=== PATIENT | male | born 1985 | race Caucasian/White ===

== ENCOUNTER 2017-11-21 09:29 | Emergency (ER) | payer OTHER, SELFPAY ==
--- NOTE | 2017-11-21 09:50 | DI.RAD_ITS ---
SYMPTOM/DIAGNOSIS: COUGH, SOB AND CP PA AND LATERAL CHEST: The heart is normal in size. The lungs are clear. The mediastinal structures and pleura appear intact. CONCLUSION: Normal chest.
--- NOTE | 2017-11-21 09:50 | ED.GENADUL_ITS ---
Discharge Plan Disposition Patient Disposition: HOME Condition: Poor Discharge Details Chief Complaint: Chest Pain Clinical Impression: Bronchitis, Pleuritis, Electrocardiography showing no acute ischemic changes Primary Care Provider: NONE,NONE ED Provider: Veena Naranjo Home Meds and New Rx's Prescriptions: New albuterol sulfate 2.5 mg/0.5 mL solution for nebulization 2.5 mg IH QID PRN (Reason: shortness of breath or wheezing) Qty: 12 RF: 0 benzonatate [Tessalon Perles] 100 mg capsule 100 mg PO TID PRN (Reason: cough) Qty: 10 RF: 0 azithromycin 500 mg tablet See Label Instructions .ROUTE .COMPLEX Qty: 3 RF: 0 prednisone 20 mg tablet 20 mg PO TID Qty: 18 RF: 0 nebulizer and compressor device .ROUTE .MEDSUPPLY Qty: 1 RF: 0 No Action acetaminophen [Mapap Extra Strength] 500 MG tablet 1,000 mg PO RF: 0 ibuprofen 200 MG tablet 600 mg PO RF: 0 Discharge Instructions Instructions: Pleurisy (ED), Acute Bronchitis (ED) Additional Instructions: Encourage hydration. Tylenol and ibuprofen as needed for discomfort. Please take antibiotics and steroids as prescribed. Please take care to follow the directions on the bottle for the steroids as this is a taper and the dosing will change day to day. You may use the albuterol nebulizer as prescribed to help with shortness of breath. Tessalon Perles may be used as prescribed to help with cough as needed. You will need follow-up with primary care, our critical care registered nurse is helping to facilitate this follow-up. He will also need the pulmonary function test as discussed with respiratory therapy. Please wait to have this testing until your symptoms have improved. Please discuss the EKG changes with your primary care as well. If you develop increased chest pain, shortness of breath, difficulty breathing, inability to hydrate or other new/ worsening symptoms please seek care urgently once again Stand Alone Forms: Work Release Discharge Data Discharge Date/Time-TO BE ENTERED AT DEPARTURE: 11/21/17 12:35 Medical Decision Making Patient presents today with chief complaint of chest pain, shortness of breath and cough. On exam, patient is noted to have wheezing in all العلي with expiration. No areas of consolidation is noted. Rate is regular, normal sinus rhythm. Patient appears nontoxic. Patient is endorsing pleuritic chest pain bilaterally in the lower lung العلي. Calves are soft and nontender. No pedal edema. No history of respiratory or cardiac pathology. Patient is an active smoker. Smokes marijuana regularly. Patient is currently afebrile. Is not taking anything as of yet for fevers or discomfort today. I will obtain EKG, chest x-ray and laboratory evaluation. EKG reviewed by Dr. Roche, concerning for T wave inversions in leads I and aVL. No prior to compare to. CXR reviewed by radiologist with no acute abnormalities noted. Laboratory evaluation has a delay secondary to machine malfunction. Patient reports no improvement with duoneb, sounds slightly improved but continues to ahve expiratory wheeze. Will give Albuterol neb. Patient reports Albuterol neb greatly improved his SOB. Patient is less wheezy. Labs without abnormality. No leukocytosis. D-dimer 244. Troponin <0.02. As the patient has had symptoms for one week, and more suggestive of infecious source, we will nt repeat the troponin at this time. Discussed findings with the patient. He reports taht he has had multiple episodes of bronchitis in the past. I have asked our respiratory therapist to evaluate the patient and instruct on how to use nebulizer. Will discharge patient with nebulizer as this greatly helped with symptomatic relief. As patient does have infection source and concerning history, will also be treated with oral steroids and antibiotics for bronchitis. Have advised respiraotry follow up given the amount of episodes of bronchitis he has had historically. Advised close f/u with PCP in one week to discuss respiratory concerns as well as EKG abnormalities. He was given strict return precautions. All of his questions and concerns were addressed, he isin agreement with this plan. HPI General Mode of arrival: ambulatory . Date/Time Provider Initiated Documentation: 11/21/17 09:30 . Limitations to Documentation: no limitations . Information obtained by: patient . HPI Narrative: Patient is a 32-year-old male presenting today with chief complaint of chest pain, cough and shortness of breath. He reports his symptoms began 1 week ago and have progressively been increasing. Patient is an active smoker. States that the cough exacerbates his chest pain. Indicates the bilateral lower aspects of his lungs as area of maximal discomfort. States that he feels that he is short of breath. States he has had fevers at home with T-max of 101.5 ?F. He denies any GI upset. No nausea, vomiting or diarrhea. Denies sore throat or ear pain. Reports he smokes marijuana but denies other illicit drug use. States the cough has been productive and he has been bringing up large amounts of sputum Related Data Home Medications Medication Instructions Recorded Confirmed acetaminophen [Mapap Extra 1,000 mg PO 05/30/17 Strength] ibuprofen 600 mg PO 05/30/17 albuterol sulfate 2.5 mg IH QID PRN #12 each 11/21/17 azithromycin See Label Instructions .ROUTE 11/21/17 .COMPLEX #3 tab benzonatate [Tessalon Perles] 100 mg PO TID PRN #10 cap 11/21/17 nebulizer and compressor #1 each 11/21/17 prednisone 20 mg PO TID #18 tab 11/21/17 Previous Rx's Medication Instructions Recorded albuterol sulfate 2.5 mg IH QID PRN #12 each 11/21/17 azithromycin See Label Instructions .ROUTE 11/21/17 .COMPLEX #3 tab benzonatate [Tessalon Perles] 100 mg PO TID PRN #10 cap 11/21/17 nebulizer and compressor #1 each 11/21/17 prednisone 20 mg PO TID #18 tab 11/21/17 Allergies Allergy/AdvReac Type Severity Reaction Status Date / Time No Known Allergies Allergy Unverified 11/21/17 11:04 Review of Systems Constitutional Reports as per HPI, Reports chills, Reports fatigue, Reports fever(s), Denies headache(s) and Denies poor appetite ENT Reports as per HPI and Denies headache(s) Cardiovascular Reports as per HPI, Reports chest pain, Denies pedal edema, Denies lightheadedness, Denies radiating jaw, neck or arm pain, Denies palpitations, Reports dyspnea and Reports dyspnea on exertion Respiratory Reports as per HPI, Reports chest congestion, Reports cough, Denies hemoptysis, Reports pain on inspiration, Reports pain with cough, Reports dyspnea, Reports dyspnea on exertion, Denies stridor and Reports wheezing Gastrointestinal Reports as per HPI, Denies change in bowel habits, Denies nausea and Denies vomiting Genitourinary Reports system reviewed and no additional complaints, except as docu (denies change in urinary habits) Musculoskeletal Reports as per HPI Integumentary/Breasts Denies new lesions, Denies erythema, Denies rash and Denies jaundice Neurologic Denies headache(s) Endocrine Reports fatigue and Denies palpitations Allergic/Immunologic Reports wheezing [facility] Social History Smoking/Tobacco Use Status: Current every day Exam Const General: cooperative, healthy appearing, comfortable, no acute distress and well developed Nutritional Appearance: average body habitus and well nourished Orientation: alert and awake HENMT Head: normal to inspection, normocephalic and atraumatic Ears: hearing grossly normal bilaterally General nose exam: external nose normal Mouth: lip normal, tongue normal and mucous membranes dry (appears dry on exam) Throat: posterior oropharynx normal and uvula midline Eyes General: appearance normal, both eyes and all related structures Neck Neck: normal visual inspection and no lymphadenopathy Chest Chest: normal inspection of the chest, normal palpation of entire chest wall and no crepitus Resp Effort & Inspection: normal respiratory effort, able to speak in complete sentences, cough, not labored, no nasal flaring, no respiratory distress, not tachypneic, no tripod positioning and no use of accessory muscles Auscultation: wheezes expiratory wheezes (in all العلي) Cardio Rate: regular rate Rhythm: regular rhythm Heart Sounds: S1 normal and S2 normal GI Inspection: normal to inspection Palpation: soft, no guarding and nontender Skin General skin exam: no rashes or lesions noted Lesions: no lesions Rashes: no rashes Neuro General: alert, awake and oriented x3 Cognition: normal cognition Speech: speech normal Gait: normal gait Extrem General: no pedal edema, no calf tenderness and normal gait Psych Appearance: grossly normal and well kempt Mental Status: mental status grossly normal Speech and Movement: speech and movement normal
[2017-11-21 09:58] LABS: Abs Immature Grans 0.02 k/cumm (0.0-0.09); Absolute Basophil Count 0.03 k/cumm (0.0-0.2); Absolute Eosinophil Count 0.16 k/cumm (0.0-0.7); Absolute Lymphocyte Count 1.55 k/cumm (1.2-3.4); Absolute Monocyte Count 0.79 k/cumm (0.11-0.7); Absolute Neutrophil Count 5.13 k/cumm (1.2-6.7); Basophils % 0.4; Eosinophils % 2.1; HCT 48.8 % (40.0-50.0); HGB 16.9 g/dL (13.5-17.5); Immature Grans % 0.3; Lymphocytes % 20.2; Mean Corp. HGB Concentration 34.6 g/dL (32.0-36.0); Mean Corpuscular Hemoglobin 31.4 pg (27.0-33.0); Mean Corpuscular Volume 90.5 fL (80-95); Mean Platelet Volume 9.6 fL (8.0-11.0); Monocytes % 10.3; Neutrophils % 66.7; Platelet Count 263 x1000/uL (130-400); RBC 5.39 m/cumm (4.50-6.00); White Blood Cell Count 7.68 k/cumm (4.4-10.8)
[2017-11-21] MEDS: Albuterol/Ipratropium 3 ML UPD VIAL (10:00)
[2017-11-21 10:10] VITALS: RESP 16
[2017-11-21 10:14] LABS: INR 1.2 (1.0-3.5)
[2017-11-21 10:30] VITALS: RESP 4
[2017-11-21 10:33] LABS: D-Dimer 244 ng/mlFEU (<500)
[2017-11-21 11:00] VITALS: O2SAT 98
[2017-11-21] MEDS: Albuterol 2.5 MG/3 ML INH SOLN VIAL UPD (11:00)
[2017-11-21 11:02] VITALS: BP 133/86; PULSE 68; RESP 16; TEMP 37; O2SAT 99
--- NOTE | 2017-11-21 11:12 | ED.GENADUL_ITS ---
Discharge Plan Discharge Details Chief Complaint: Chest Pain Primary Care Provider: NONE,NONE ED Provider: Veena Naranjo Home Meds and New Rx's Prescriptions: No Action acetaminophen [Mapap Extra Strength] 500 MG tablet 1,000 mg PO RF: 0 ibuprofen 200 MG tablet 600 mg PO RF: 0 Medical Decision Making ECG Data Attestation: I personally reviewed and interpreted this ECG (s) as follows: Prior ECG tracings: available for review Interpretation: Normal sinus rhythm, the rate is 82, the QRS is narrow, there are T waves inverted in leads I and aVL. There is no ST segment elevation HPI General Mode of arrival: ambulatory . Date/Time Provider Initiated Documentation: 11/21/17 09:30 . Limitations to Documentation: no limitations . Information obtained by: patient . Related Data Home Medications Medication Instructions Recorded Confirmed acetaminophen [Mapap Extra 1,000 mg PO 05/30/17 Strength] ibuprofen 600 mg PO 05/30/17 Allergies Allergy/AdvReac Type Severity Reaction Status Date / Time No Known Allergies Allergy Unverified 11/21/17 11:04 General Stated Complaint: Chest Pain RIK: 2 PFS Social History Smoking/Tobacco Use Status: Current every day Course Vital Signs Temperature 37 C 11/21/17 11:02 Pulse 68 11/21/17 11:02 Respiratory Rate 16 11/21/17 11:02 Blood Pressure 133/86 11/21/17 11:02 Pulse Oximetry 99 11/21/17 11:02 Temperature 37 C 11/21/17 11:02 Temperature Source Skin 11/21/17 11:02 Pulse 68 11/21/17 11:02 Respiratory Rate 16 11/21/17 11:02 Respiratory Effort Non-Labored 11/21/17 11:02 Blood Pressure 133/86 11/21/17 11:02 Blood Pressure Position Supine 11/21/17 11:02 Pulse Oximetry 99 11/21/17 11:02 Oxygen Delivery Method Nasal Cannula 11/21/17 11:02 Pain Level 5 11/21/17 11:02 Lab/Test Results Lab/Test Results: Laboratory Tests Range/Units 11/21/17 11/21/17 09:45 09:45 WBC (4.4-10.8) k/cumm 7.68 RBC (4.50-6.00) m/cumm 5.39 Hgb (13.5-17.5) g/dL 16.9 Hct (40.0-50.0) % 48.8 MCV (80-95) fL 90.5 MCH (27.0-33.0) pg 31.4 MCHC (32.0-36.0) g/dL 34.6 RDW (11.8-14.1) % 12.0 Plt Count (130-400) x1000/uL 263 MPV (8.0-11.0) fL 9.6 Immature Gran % 0.3 Neutrophils % 66.7 Lymphocytes % 20.2 Monocytes % 10.3 Eosinophils % 2.1 Basophils % 0.4 Absolute Neutrophils (1.2-6.7) k/cumm 5.13 Absolute Lymphocytes (1.2-3.4) k/cumm 1.55 Absolute Monocytes (0.11-0.7) k/cumm 0.79 H Absolute Eosinophils (0.0-0.7) k/cumm 0.16 Absolute Basophils (0.0-0.2) k/cumm 0.03 PT (9.3-10.8) sec 12.0 H INR (1.0-3.5) 1.2 APTT (21.0-31.4) sec 29.0 D-Dimer (<500) ng/mlFEU 244
[2017-11-21 11:30] VITALS: RESP 4
[2017-11-21 11:34] LABS: ALT 47 U/L (12-78); AST 25 U/L (15-37); Alkaline Phosphatase 128 U/L (46-116); Anion Gap 9.5 mmol/L (3-11); BUN 16 mg/dL (7-18); Bilirubin, Total 0.5 mg/dL (0.2-1.0); CO2 28.5 mmol/L (21.0-32.0); CREATININE 1.02 mg/dL (0.70-1.30); Calcium 9.6 mg/dL (8.5-10.1); Chloride 101 mmol/L (98-107); Glucose 79 mg/dL (70-100); Magnesium 2.2 mg/dL (1.8-2.4); Potassium 4.2 mmol/L (3.5-5.1); Sodium 139 mmol/L (136-145); Troponin I < 0.02 ng/mL (0.00-0.06)
--- NOTE | 2017-11-21 13:15 | PDOC.ERCMPRO ---
Care Management Progress Note 11/21/17-Pt seen today for bronchitis by DANIELLE Antonio . 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 He states he has had bronchitis frequently throughout his life. Referral for Pt to establish a pcp was faxed to [facility] as Dr. Katerin Doan is material control specialist. Pt was given a rx for a neb machine and albuterol. Pt had a duoneb when he first arrived and did not feel any change. After the albuterol neb he noticed he could breathe easier. A PFT referral was oput in by DANIELLE Antonio.
--- NOTE | 2017-11-21 13:18 | CMPROGNOTE_ITS ---
Care Management Progress Note 11/21/17-Pt seen today for bronchitis by DANIELLE Antonio . 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 He states he has had bronchitis frequently throughout his life. Referral for Pt to establish a pcp was faxed to [facility] as Dr. Katerin Doan is continuous wave operator. Pt was given a rx for a neb machine and albuterol. Pt had a duoneb when he first arrived and did not feel any change. After the albuterol neb he noticed he could breathe easier. A PFT referral was oput in by DANIELLE Antonio.
[2017-11-21 19:09] VITALS: BP 133/86; PULSE 68; RESP 16; TEMP 37; O2SAT 99
== END 2017-11-21 12:35 | disposition home or self-care (01) ==
PROVIDERS: Emergency Provider Physician Assistant
DX: J20.9 Acute bronchitis, unspecified; R09.1 Pleurisy; R94.31 Abnormal electrocardiogram [ECG] [EKG]; R07.9 Chest pain, unspecified
CPT/HCPCS: 36415; 80053; 93005; 94640; 99284; 71046; 83735; 84484; 85025; 85379; 85610; 85730; 93010; J7613; J7620

== ENCOUNTER 2019-04-01 09:02 | Emergency (ER) | payer MEDICAID, SELFPAY ==
[2019-04-01 09:06] VITALS: BP 153/98; PULSE 107; RESP 18; TEMP 36.4; O2SAT 99
--- NOTE | 2019-04-01 09:30 | W.ED.GENAD ---
Discharge Plan Disposition Patient Disposition: HOME Condition: Good Discharge Details Chief Complaint: DentalOral Clinical Impression: Dental abscess Primary Care Provider: None,None ED Provider: Meenakshi Saavedra Home Meds and New Rx's Prescriptions: New penicillin V potassium 500 mg tablet 500 mg PO QID Qty: 40 RF: 0 No Action acetaminophen [Mapap Extra Strength] 500 MG tablet 1,000 mg PO PRN PRNRF: 0 ibuprofen 200 MG tablet 600 mg PO PRN PRNRF: 0 methadone 5 mg/5 mL Solution 90 mg PO DAILY RF: 0 albuterol sulfate 2.5 mg/0.5 mL solution for nebulization 2.5 mg IH QID PRN (Reason: shortness of breath or wheezing) Qty: 12 RF: 0 (DME) nebulizer and compressor device See Dose Instructions .ROUTE .MEDSUPPLY Qty: 1 RF: 0 Discharge Instructions Instructions: Dental Abscess (ED) Additional Instructions: Ice to the face for swelling. Warm salt water rinses after eating or drinking. Use antibiotic as prescribed. Ibuprofen 600 mg every 8 hours for inflammation and pain if needed with food prior to taking ibuprofen. Use Tylenol 1000 mg every 6 hours at most if needed for pain relief. Keep head of bed elevated. Follow-up with dentist promptly. Consider drainage of your abscess for any worsening or concerns. You declined incision and drainage at this time. Return for any worsening, concerns or alarming symptoms sooner if needed. Medical Decision Making This is a 33-year-old patient presenting for dental pain. Patient is concerned with facial swelling which originates at tooth #9 noted on exam. Patient has concern for dental abscess. Patient clinically has developing dental abscess. Patient has been able to eat and drink. No voice change or trismus. Patient does a history of several dental infections in the past. Onset of this infection began approximately 1 week ago. Patient denies any fevers or systemic symptoms. Patient offered incision and drainage however patient declines incision and drainage at this time as he reports he has improved significantly with oral antibiotics alone in the past and prefers to initiate oral antibiotics and return for any continued worsening. Precautions were discussed at length. Conservative treatments discussed at length. Patient agrees with plan of care. The patient was stable and requested discharge. Prior to discharge, my usual and customary return precautions were reviewed with the patient - this included follow-up instructions and reasons to return to the Emergency Department if conditions worsens, does not improve as expected, or other new concerns arise. HPI General Date/Time Provider Initiated Documentation: 04/01/19 09:04. HPI Narrative: This is a 33-year-old patient presenting for complaints of dental pain. Patient reports dental pain for the last week. Patient reports left upper dental pain which has progressed and he is now concerned with abscess. Patient reports an area of swelling which is extending up toward his nose. Patient denies fever, chills, nausea, vomiting. He has been eating and drinking without difficulty. Patient reports he has trialed conservative treatments. Patient reports history of dental abscess in the past. No other concerns or complaints at this time. Related Data Home Medications Medication Instructions Recorded Confirmed acetaminophen [Mapap Extra 1,000 mg PO PRN PRN 05/30/17 04/01/19 Strength] ibuprofen 600 mg PO PRN PRN 05/30/17 04/01/19 albuterol sulfate 2.5 mg IH QID PRN #12 each 11/21/17 04/01/19 nebulizer and compressor #1 each 11/21/17 methadone 90 mg PO DAILY 04/01/19 04/01/19 penicillin V potassium 500 mg PO QID #40 tab 04/01/19 Previous Rx's Medication Instructions Recorded albuterol sulfate 2.5 mg IH QID PRN #12 each 11/21/17 nebulizer and compressor #1 each 11/21/17 penicillin V potassium 500 mg PO QID #40 tab 04/01/19 Allergies Allergy/AdvReac Type Severity Reaction Status Date / Time No Known Allergies Allergy Unverified 04/01/19 09:09 General Stated Complaint: DentalOral RIK: 4 Review of Systems All systems reviewed & are unremarkable except as noted in HPI and below Constitutional Constitutional: Denies chills, Denies fatigue, Denies fever(s), Denies headache(s) and Denies malaise ENT Ears, Nose, Mouth, and Throat: Reports dental pain, Denies vertigo, Denies dizziness, Denies otalgia, Reports facial pain, Denies headache(s), Reports nose pain and Denies sore throat Cardiovascular Cardiovascular: Denies dyspnea Respiratory Respiratory: Denies cough, Denies dyspnea and Denies wheezing Gastrointestinal Gastrointestinal: Denies abdominal pain, Denies diarrhea, Denies nausea and Denies vomiting Neurologic Neurologic: Denies vertigo, Denies dizziness and Denies headache(s) Endocrine Endocrine: Denies fatigue Allergic/Immunologic Allergic/Immunologic: Denies wheezing [facility] Social History Smoking/Tobacco Use Status: Current every day Drug use: Daily Substance use type: marijuana Do you feel safe at home: Yes Exam Narrative Exam Narrative: CONST: Healthy appearing patient, in no acute distress. Well hydrated. Alert and oriented. HENMT: Head nomocephalic, normal to inspection. Atraumatic. Hearing grossly normal. TMs appear normal bilaterally. No pharyngeal erythema or swelling. Patient does have widespread dental caries. Patient has upper dental abscess seeming to originate at tooth #9. Fullness noted at the gumline. Focal swelling noted without drainage. EYES: General normal appearance. Alignment normal. Eyelids normal. Conjunctiva normal. Neck: Full range of motion. No cervical lymphadenopathy present. SKIN: Normal. Dry. No rashes. No associated facial cellulitis Course Vital Signs Vital signs: Vital Signs Temperature 36.4 C L 04/01/19 09:06 Pulse 107 H 04/01/19 09:06 Respiratory Rate 18 04/01/19 09:06 Blood Pressure 153/98 H 04/01/19 09:06 Pulse Oximetry 99 04/01/19 09:06 Temperature 36.4 C L 04/01/19 09:06 Pulse 107 H 04/01/19 09:06 Respiratory Rate 18 04/01/19 09:06 Respiratory Effort Non-Labored 04/01/19 09:08 Blood Pressure 153/98 H 04/01/19 09:06 Blood Pressure Position Sitting 04/01/19 09:06 Pulse Oximetry 99 04/01/19 09:06 Oxygen Delivery Method Room Air 04/01/19 09:06 Oxygen Flow Rate 0 04/01/19 09:06 Pain Level 10 04/01/19 09:08
== END 2019-04-01 09:45 | disposition home or self-care (01) ==
PROVIDERS: Emergency Provider Physician Assistant
DX: R22.0 Localized swelling, mass and lump, head (principal); R68.84 Jaw pain; K04.7 Periapical abscess without sinus
CPT/HCPCS: 99283

== ENCOUNTER 2021-03-21 08:23 | Emergency (ER) | payer MEDICAID, SELFPAY ==
[2021-03-21 08:28] VITALS: BP 150/86; PULSE 51; RESP 16; TEMP 36.4; O2SAT 100
--- NOTE | 2021-03-21 08:45 | DI.CT_ITS ---
Exam(s) CT ABDOMEN PELVIS W EXAM: CT ABDOMEN PELVIS W CLINICAL HISTORY: llq pain. TECHNIQUE: Imaging Protocol: Axial computed tomography images with coronal and sagittal reformatted images were created and reviewed CONTRAST MATERIAL: Intravenous: Omnipaque-350: 70cc Oral: None COMPARISON: CT ABD PELVIS WITH CONTRAST from 06/02/2011 FINDINGS: VISUALIZED LUNG BASES: No nodules nor pleural effusions evident. ABDOMEN: There is no ascites. LIVER: There are no focal hepatic lesions evident . GALLBLADDER/BILIARY: No obvious gallbladder pathology. CBD is not dilated. PANCREAS: No evidence of pancreatic mass nor dilatation of the pancreatic duct. SPLEEN: Spleen is not enlarged. No obvious intrasplenic lesions. Splenic and portal veins are paten t. ADRENALS: There are no significant adrenal masses. KIDNEYS:No cysts evident. No solid renal masses. No calculi nor hydronephrosis.. ABDOMINAL AORTA: Abdominal aorta is not enlarged. Retroaortic left renal vein noted. LYMPH NODES:Slightly enlarged para-aortic lymph nodes are again noted, as was described in 2012. no a denopathy around the aortic bifurcation nor along the iliac chains. ABDOMINAL WALL: No evidence of significant anterior abdominal wall nor inguinal hernia. GI: There is no evidence of bowel obstruction, free air, nor abscess. PELVIS: GI: No evidence of appendicitis.Moderate amount of fecal material noted throughout the colon.No obvio us diverticulitis evident. However, there is a small amount of free fluid in the dependent aspect of the pelvis noted. Also some very mild streaking around descending colon at the iliac crest level, p ossibly significant. LYMPH NODES: There is no intrapelvic nor inguinal adenopathy. REPRODUCTIVE: Prostate and seminal vesicles appear unremarkable. URINARY BLADDER: No calculi nor obvious masses evident OSSEOUS: No significant osseous lesions. Sacroiliac joints unremarkable IMPRESSION: 1. There are multiple slightly enlarged para-aortic lymph nodes noted, as was also previously describ ed in the CT scan 2012. No splenomegaly. 2. No calculi seen in the urinary tracts. No hydronephrosis 3. No evidence of appendicitis. However, there is a small amount of free fluid in the dependent aspe ct of the pelvis which is not a normal finding in a male patient. Very subtle streaking around the d escending colon at the iliac crest level, possibly significant. No obvious diverticuli. 4. RADIATION DOSE DELIVERED: 773.62mGy.cm Total DLP DATA REPOSITORY: All CT scans at this facility are submitted to the National Radiology Data Registry (NRDR) Dose Index Registry (DIR) with the [employer] ([employer]). RADIATION OPTIMIZATION: All CT scans at this facility use at least one of these dose optimization te chniques: automated exposure control; mA and/or kV adjustment per patient size (includes targeted exa ms where dose is matched to clinical indication); or iterative reconstruction.
[2021-03-21 08:56] LABS: Abs Immature Grans 0.02 10^3/uL (0.0-0.06); Absolute Basophil Count 0.04 10^3/uL (0.0-0.2); Absolute Eosinophil Count 0.17 10^3/uL (0.0-0.7); Absolute Lymphocyte Count 2.01 10^3/uL (1.2-3.4); Absolute Monocyte Count 0.56 10^3/uL (0.1-0.8); Absolute Neutrophil Count 4.96 10^3/uL (1.2-6.7); Basophils % 0.5; Eosinophils % 2.2; HCT 46.5 % (40.0-50.0); HGB 15.4 g/dL (13.5-17.5); Immature Grans % 0.3; Lymphocytes % 25.9; MCH 30.8 pg (27.0-33.0); MCHC 33.1 % (32.0-36.0); MPV 9.6 fL (8.0-11.0); Monocytes % 7.2; Neutrophils % 63.9; Nucleated RBC 0 %; Platelet Count 270 10^3/uL (130-400); RDW-SD 41.6 fL; WBC 7.76 10^3/uL (4.4-10.8)
[2021-03-21] MEDS: Omnipaque 350 MG/ML 100 ML BTL IJ (08:58)
[2021-03-21 09:00] LABS: Bilirubin Negative (Negative); Blood Negative (Negative); Clarity Clear (Clear); Glucose Negative (Negative); Ketones Negative (Negative); Leukocyte Esterase Negative (Negative); Nitrite Negative (Negative); Specific Gravity 1.025 (1.005-1.025); Urobilinogen 0.2 EU/dL (Up TO 0.2)
[2021-03-21 09:22] LABS: ALT 29 U/L (16-63); AST 22 U/L (15-37); Albumin 4.1 g/dL (3.4-5.0); Alkaline Phosphatase 122 U/L (46-116); Anion Gap 7.6 mmol/L (3-11); BUN 10 mg/dL (7-18); Bilirubin, Total 0.2 mg/dL (0.2-1.0); CO2 28.4 mmol/L (21.0-32.0); Calcium 9.4 mg/dL (8.5-10.1); Chloride 102 mmol/L (98-107); Glucose 98 mg/dL (74-106); Lipase 520 U/L (73-393); Potassium 3.4 mmol/L (3.5-5.1); Sodium 138 mmol/L (136-145); Total Protein 7.9 g/dL (6.4-8.2)
--- NOTE | 2021-03-21 09:52 | ED.GENADUL_ITS ---
Discharge Plan Disposition Patient Disposition: HOME Condition: Stable Discharge Details Clinical Impression: Abdominal pain Primary Care Provider: None,None ED Provider: Rita Barakat Home Meds and New Rx's Prescriptions: New amoxicillin-pot clavulanate [Augmentin] 875-125 mg tablet 1 tab PO BID Qty: 20 RF: 0 potassium chloride 20 mEq packet 20 meq PO DAILY Qty: 5 RF: 0 Continued acetaminophen [Mapap Extra Strength] 500 MG tablet 1,000 mg PO PRN PRNRF: 0 ibuprofen 200 MG tablet 600 mg PO PRN PRNRF: 0 methadone 5 mg/5 mL Solution 100 mg PO DAILY RF: 0 penicillin V potassium 500 mg tablet 500 mg PO QID Qty: 40 RF: 0 albuterol sulfate 2.5 mg/0.5 mL solution for nebulization 2.5 mg IH QID PRN (Reason: shortness of breath or wheezing) Qty: 12 RF: 0 (DME) nebulizer and compressor device See Dose Instructions .ROUTE .MEDSUPPLY Qty: 1 RF: 0 Discharge Instructions Instructions: Diverticulitis (ED), Abdominal Pain (ED) Additional Instructions: On her CAT scan you have possible evidence of diverticulitis, we are treating you with antibiotics, take these as prescribed Yogurt daily while on the antibiotic You also have evidence of lymph nodes on your aorta, it is important that you establish care with a primary care physician for close outpatient follow-up r egarding this finding, Your lipase is mildly elevated, low carbohydrate diet, increase fluid hydration, outpatient reassessment of your lipase indicated by PCP You have an appointment tomorrow with Dr Maloney in [facility] tomorrow at 1020 potassium as prescribed Referrals: Eduin Maloney MD [ [facility] STAFF PHYSICIAN] - Medical Decision Making Patient appears well, he has a possible area of inflammation concerning for diverticulitis without obvious observed diverticulum per radiology interpretation in my review We will treat for diverticulitis Dr. Centeno has concern for lymphadenopathy surrounding aorta which is subacute but patient was not aware and has not followed up regarding this finding Patient is otherwise well-appearing Discharged home in stable condition with stable Patient is aware regarding need for further assessment of this lymphadenopathy Patient is discharged home in stable condition with stable vitals He has an appointment tomorrow at 1020 for PCP follow-up and establishment Medical Records Medical records reviewed: Yes I reviewed the patient's medical records. Lab Data Lab results reviewed: Yes I reviewed the patient's lab results. HPI General Mode of arrival: ambulatory . Date/Time Provider Initiated Documentation: 03/21/21 08:34 . Limitations to Documentation: no limitations . Information obtained by: patient . HPI Narrative: This 35-year-old male presents with report of left lower quadrant pain for the past 3 days. Denies fever or chills. Denies any diarrhea, nausea, vomiting. Denies any cough, wh eeze, shortness of breath. Denies any urinary symptoms or rashes. Denies history of similar symptoms in the past. Describes the pain as sharp. Denies known exacerbating or alleviating factors. Related Data Home Medications Medication Instructions Recorded Confirmed acetaminophen [Mapap Extra 1,000 mg PO PRN PRN 05/30/17 03/21/21 Strength] ibuprofen 600 mg PO PRN PRN 05/30/17 03/21/21 albuterol sulfate 2.5 mg IH QID PRN #12 each 11/21/17 03/21/21 nebulizer and compressor #1 each 11/21/17 methadone 100 mg PO DAILY 04/01/19 03/21/21 penicillin V potassium 500 mg PO QID #40 tab 04/01/19 amoxicillin-pot clavulanate 1 tab PO BID #20 tab 03/21/21 [Augmentin] potassium chloride 20 meq PO DAILY #5 ea 03/21/21 Previous Rx's Medication Instructions Recorded albuterol sulfate 2.5 mg IH QID PRN #12 each 11/21/17 nebulizer and compressor #1 each 11/21/17 penicillin V potassium 500 mg PO QID #40 tab 04/01/19 amoxicillin-pot clavulanate 1 tab PO BID #20 tab 03/21/21 [Augmentin] potassium chloride 20 meq PO DAILY #5 ea 03/21/21 Allergies Allergy/AdvReac Type Severity Reaction Status Date / Time No Known Allergies Allergy Unverified 03/21/21 08:30 General Stated Complaint: Abd Prob RIK: 3 Review of Systems All systems reviewed & are unremarkable except as noted in HPI and below PFSH All Active Problems (Updated 03/21/21 @ 10:07 by DANIELLE Portillo) Dental abscess (Acute) Abdominal pain (Acute) Social History Smoking/Tobacco Use Status: Current every day Tobacco Type: cigarettes Smoking risk assessment performed?: Yes Alcohol Intake: former Drug use: Daily Substance use type: marijuana Do you feel safe at home: Yes Do you feel safe in your relationship?: Yes Exam Const General: cooperative and comfortable Orientation: alert Eyes Sclera: sclerae normal Resp Effort & Inspection: normal respiratory effort Auscultation: clear to auscultation bilaterally Cardio Rate: regular rate Rhythm: regular rhythm Other: Distal pulses intact GI Other: Lower quadrant abdominal tenderness, no rebound or guarding, no CVA tenderness, no abdominal bruit or pulsatile mass Skin General skin exam: no rashes or lesions noted Neuro General: patient alert and patient oriented x3 Extrem Other: Distal pulses intact Course Vital Signs Vital signs: Vital Signs Temperature 36.4 C L 03/21/21 08:28 Pulse 51 L 03/21/21 08:28 Respiratory Rate 16 03/21/21 08:28 Blood Pressure 150/86 H 03/21/21 08:28 Pulse Oximetry 100 03/21/21 08:28 Temperature 36.4 C L 03/21/21 08:28 Temperature Source Temporal Artery Scan 03/21/21 08:28 Pulse 51 L 03/21/21 08:28 Respiratory Rate 16 03/21/21 08:28 Respiratory Effort Non-Labored 03/21/21 08:49 Blood Pressure 150/86 H 03/21/21 08:28 Blood Pressure Position Sitting 03/21/21 08:28 Pulse Oximetry 100 03/21/21 08:28 Oxygen Delivery Method Room Air 03/21/21 08:28 Oxygen Flow Rate 0 03/21/21 08:28 Pain Level 3 03/21/21 08:49 Lab/Test Results Lab/Test Results: Laboratory Tests Range/Units 03/21/21 03/21/21 03/21/21 08:40 08:40 08:45 WBC (4.4-10.8) 10^3/uL 7.76 RBC (4.36-5.78) 10^6/uL 5.00 Hgb (13.5-17.5) g/dL 15.4 Hct (40.0-50.0) % 46.5 MCV (80-95) fL 93.0 MCH (27.0-33.0) pg 30.8 MCHC (32.0-36.0) % 33.1 RDW (11.8-14.1) % 12.0 Plt Count (130-400) 10^3/uL 270 MPV (8.0-11.0) fL 9.6 Immature Gran % 0.3 Neutrophils % 63.9 Lymphocytes % 25.9 Monocytes % 7.2 Eosinophils % 2.2 Basophils % 0.5 Nucleated RBC % % 0 Absolute Neutrophils (1.2-6.7) 10^3/uL 4.96 Absolute Lymphocytes (1.2-3.4) 10^3/uL 2.01 Absolute Monocytes (0.1-0.8) 10^3/uL 0.56 Absolute Eosinophils (0.0-0.7) 10^3/uL 0.17 Absolute Basophils (0.0-0.2) 10^3/uL 0.04 Sodium (136-145) mmol/L 138 Potassium (3.5-5.1) mmol/L 3.4 L Chloride (98-107) mmol/L 102 Carbon Dioxide (21.0-32.0) mmol/L 28.4 Anion Gap (3-11) mmol/L 7.6 BUN (7-18) mg/dL 10 Creatinine (0.70-1.30) mg/dL 1.0 Estimated GFR/1.73 m2 (mL/min/1.73m2) >= 60.00 Glucose (74-106) mg/dL 98 Calcium (8.5-10.1) mg/dL 9.4 Total Bilirubin (0.2-1.0) mg/dL 0.2 AST (15-37) U/L 22 ALT (16-63) U/L 29 Alkaline Phosphatase (46-116) U/L 122 H Total Protein (6.4-8.2) g/dL 7.9 Albumin (3.4-5.0) g/dL 4.1 Lipase (73-393) U/L 520 H Urine Color (Yellow) Yellow Urine Clarity (Clear) Clear Urine pH (5-8) 7.0 Ur Specific [place] (1.005-1.025) 1.025 Urine Protein (Negative) mg/dL Negative Urine Ketones (Negative) mg/dL Negative Urine Blood (Negative) Negative Urine Nitrite (Negative) Negative Urine Bilirubin (Negative) Negative Urine Urobilinogen (Up TO 0.2) EU/dL 0.2 Ur Leukocyte Esterase (Negative) Negative Urine Glucose (Negative) mg/dL Negative
[2021-03-21 10:15] VITALS: BP 144/87; PULSE 61; RESP 17; TEMP 36.7; O2SAT 98
--- NOTE | 2021-03-21 10:29 | PDOC.ERCMACT ---
- If Service Date Differs Date of service: 03/21/21 Time of Service: 10:29 Care Management Activity Note Pedro is seen in the ED for abdominal pain. At the request of ED provider, CM contacts the [facility], the on-call clinic for today, to obtain an appointment for Pedro with a PCP as soon as possible. A CT scan of Pedro's abdomen and pelvis notes multiple slightly enlarged para-aortic lymph nodes and a small amount of free fluid in the dependent aspect of the pelvis which is not a normal finding in a male patient. An appointment with Dr. Eduin Maloney is scheduled for Monday, March 22, 2021 at 10:20 am.
== END 2021-03-21 10:14 | disposition home or self-care (01) ==
PROVIDERS: Emergency Provider Physician Assistant
DX: R10.32 Left lower quadrant pain (principal); R93.5 Abnormal findings on diagnostic imaging of other abdominal regions, including retroperitoneum
CPT/HCPCS: 36415; 80053; 83690; 99285; 74177; 81003; 85025; 99283; J3490

== ENCOUNTER 2021-07-09 09:00 | Emergency (ER) | payer MEDICAID, SELFPAY ==
[2021-07-09 09:05] VITALS: BP 153/89; PULSE 89; RESP 16; TEMP 36.4; O2SAT 100
[2021-07-09] MEDS: Tetracaine 0.5% 4 ML BTL OP (09:23)
[2021-07-09] MEDS: Fluorescein STRIPS 100/BOX 1 MG OP (09:23)
[2021-07-09] MEDS: Balanced Salt Solution 15 ML BTL OP (09:23)
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
[2021-07-09] MEDS: Tetanus & Diphtheria Tox,ADULT 0.5 ML VIAL IM (09:45)
--- NOTE | 2021-07-09 10:00 | NUR.NOTE ---
Referral faxed to [facility] for scleral abrasion, for Sunday, July 11. Ariana Hong
== END 2021-07-09 09:51 | disposition home or self-care (01) ==
PROVIDERS: Emergency Provider Nurse Practitioner Family
DX: S05.8X1A Other injuries of right eye and orbit, initial encounter (principal); X58.XXXA Exposure to other specified factors, initial encounter
CPT/HCPCS: 99283

== ENCOUNTER 2022-04-14 08:31 | Emergency (ER) | payer MEDICAID, SELFPAY ==
[2022-04-14 08:52] VITALS: BP 140/79; PULSE 64; RESP 18; TEMP 36.6; O2SAT 97
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
[2022-04-14 09:25] VITALS: BP 136/68; PULSE 63; RESP 16; TEMP 36.5; O2SAT 98
== END 2022-04-14 09:27 | disposition home or self-care (01) ==
PROVIDERS: Emergency Provider Emergency Medicine
DX: T23.032A Burn of unspecified degree of multiple left fingers (nail), not including thumb, initial encounter (principal); X08.8XXA Exposure to other specified smoke, fire and flames, initial encounter; D17.22 Benign lipomatous neoplasm of skin and subcutaneous tissue of left arm
CPT/HCPCS: 99283